=== PATIENT | male | born 1965 | race Caucasian/White ===

== ENCOUNTER 2018-12-27 16:32 | Emergency (ER) | payer SELFPAY ==
[~2018-12-27] VITALS: Ht 177.8 cm; Wt 83.9 kg
[~2018-12-27 16:32] MED LIST: ASPI325T11 PO; ATOR20TA58 PO; CLOP75TA PO; LISI-338 PO; LISI10TA2 PO; METO25TA4 PO
--- NOTE | 2018-12-27 17:21 | PHYS DOC ---
Past Medical History Past Medical History: Hypertension Additional Past Medical Histor: uncontrolled HTN Past Surgical History: No Surgical History Alcohol Use: None Drug Use: Methamphetamine Adult General Chief Complaint Chief Complaint: GROIN PAIN HPI HPI Patient is a 53 year old male with history of hypertension, who presents to the ED today complaining of inguinal hernia to the right groin that has been there for 3 years. He states today he is experiencing more pain. Patient states he has never tried to reduce it. He states has never followed up with anyone for this hernia. He rates the pain is mild to moderate, he states some activities exacerbate the pain. Review of Systems Review of Systems Constitutional: Denies fever or chills [] GI: Denies abdominal pain, nausea, vomiting, bloody stools or diarrhea [] :Reports right groin hernia. Denies dysuria or hematuria [] Musculoskeletal: Denies back pain or joint pain [] Integument: Denies rash or skin lesions [] Neurologic: Denies headache, focal weakness or sensory changes [] All other systems were reviewed and found to be within normal limits, except as documented in this note. Current Medications Current Medications Current Medications Medications (Trade) Dose Ordered Sig/Julieta Start Time Stop Time Status Last Admin Dose Admin Acetaminophen/ Hydrocodone Bitart (Lortab 5/325) 2 tab 1X ONCE 12/27/18 18:00 12/27/18 18:01 Allergies Allergies Allergies Coded Allergies Type Severity Reaction Last Updated Verified I S O L A T I O N *CONTACT* Allergy Unknown 10/19/17 Yes No Known Medication Allergies Allergy Unknown 10/19/17 Yes Physical Exam Physical Exam Constitutional: Well developed, well nourished, no acute distress, non-toxic appearance. [] Abdomen: Bowel sounds normal, soft, no tenderness, no masses, no pulsatile masses. [] Male exam-Right inguinal a hernia, Dr. Eden tried to reduce it but it does not stay in place. Skin: Warm, dry, no erythema, no rash. [] Back: No tenderness, no CVA tenderness. [] Extremities: No tenderness, no cyanosis, no clubbing, ROM intact, no edema. [] Neurologic: Alert and oriented X 3, normal motor function, normal sensory function, no focal deficits noted. [] Psychologic: Affect normal, judgement normal, mood normal. [] EKG EKG [] Radiology/Procedures Radiology/Procedures [] Course & Med Decision Making Course & Med Decision Making Pertinent Labs and Imaging studies reviewed. (See chart for details) This is a 53 year old male with right inguina hernia for 3 years. Hernia is not strangulated. Dr. Eden tried to reduce it but it comes out. Talked to patient, we agreed on following up with General surgery this week. Dragon Disclaimer Dragon Disclaimer This electronic medical record was generated, in whole or in part, using a voice recognition dictation system. Departure Departure Impression: Primary Impression: Inguinal hernia Disposition: HOME, SELF-CARE Condition: STABLE Referrals: UNKNOWN PCP NAME (PCP) HERSON BANEGAS MD call him tomorrow and set up a follow up appointment. Patient Instructions: Inguinal Hernia, Adult, Care After Additional Instructions: You have right inguinal hernia. Please take the prescribed pain medicines as needed for pain. Please call the provided general surgeon and follow up as soon as you can Scripts Hydrocodone/Apap 5-325 (NORCO 5-325 TABLET) 1 Each Tablet 1 TAB PO Q6HRS, #20 TAB Prov: JAE RANGEL APRN 12/27/18 Problem Qualifiers Primary Impression: Inguinal hernia Obstruction and gangrene presence: without obstruction or gangrene Laterality: unilateral Recurrence: recurrent Qualified Codes: K40.91 - Unilateral inguinal hernia, without obstruction or gangrene, recurrent JAE RANGEL APRN Dec 27, 2018 17:21
[2018-12-27 17:30] VITALS: BP 139/93
[2018-12-27] MEDS ORDERED: HYDR-3164 PO (17:40)
[2018-12-27] MEDS ORDERED: HYDROcodone/APAP 5/325MG 1 TAB TABLET PO ONE (18:00)
== END 2018-12-27 17:40 | disposition home or self-care (01) ==
LOC: ER 16:32
DX: K40.91 Unilateral inguinal hernia, without obstruction or gangrene, recurrent (principal); I10 Essential (primary) hypertension
CPT/HCPCS: 99283